=== PATIENT | female | born 1930 | race Caucasian/White ===

== ENCOUNTER 2019-09-07 09:40 | Emergency (ER) | payer OTHER ==
--- NOTE | ~2019-09-07 | EKG ---
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
== END 2019-09-07 11:38 | disposition home or self-care (01) ==
LOC: ED 09:40
DX: S20.219A Contusion of unspecified front wall of thorax, initial encounter (principal); V49.69XA Unspecified car occupant injured in collision with other motor vehicles in traffic accident, initial encounter; Y93.89 Activity, other specified; Y92.488 Other paved roadways as the place of occurrence of the external cause; Y99.8 Other external cause status